=== PATIENT | male | born 1995 | race African-American/Black ===

== ENCOUNTER 2021-08-07 07:41 | Emergency (ER) | payer OTHER ==
[2021-08-07 09:01] VITALS: BP 107/69; PULSE 78; TEMP 98; BMI 21.4
== END 2021-08-07 10:03 | disposition home or self-care (01) ==
LOC: JER 07:41
DX: Z20.822 Contact with and (suspected) exposure to COVID-19 (principal)
CPT/HCPCS: 99283-25; C9803; U0003; U0005

== ENCOUNTER 2022-04-26 16:23 | Emergency (ER) | payer OTHER ==
[2022-04-26 16:28] VITALS: BP 118/64; PULSE 74; RESP 18; TEMP 97.8; BMI 20.5
[2022-04-26] MEDS ORDERED: DIPHTH,PERTUSS(ACELL),TET 0.5 ML DISP.SYRIN IM ONE ×2 (17:24→17:28)
== END 2022-04-26 18:46 | disposition home or self-care (01) ==
LOC: JERFT 16:23
PROC: 3E0234Z Introduction of Serum, Toxoid and Vaccine into Muscle, Percutaneous Approach (ICD-10-PCS; principal; 2022-04-26)
DX: S61.227A Laceration with foreign body of left little finger without damage to nail, initial encounter (principal); W26.8XXA Contact with other sharp object(s), not elsewhere classified, initial encounter
CPT/HCPCS: 90715; 99284-25

== ENCOUNTER 2023-08-16 23:49 | Emergency (ER) | payer OTHER ==
[2023-08-16 23:54] VITALS: BP 122/79; PULSE 83; RESP 20; TEMP 98.4; BMI 20.7
[2023-08-17] MEDS: ACETAMINOPHEN 500 MG TABLET (FP) PO ONE (00:10)
[2023-08-17] MEDS ORDERED: ACETAMINOPHEN 325 MG TABLET (FP) ONE (00:40)
[2023-08-17] MEDS ORDERED: KETOROLAC TROMETHAMINE 30 MG/1 ML VIAL ONE (03:15)
[2023-08-17] MEDS: KETOROLAC TROMETHAMINE 30 MG/1 ML VIAL IM ONE (03:23)
[2023-08-18] MEDS ORDERED: MAG HYDROX/AL HYDROX/SIMETH 30 ML UNIT-DOSE CUP ONE (21:24)
[2023-08-26] MEDS ORDERED: INSULIN (NOVOLOG) ASPART 100 UNITS/ML 10ML VIAL ONE (08:41)
[2023-09-08] MEDS ORDERED: INSULIN (NOVOLOG) ASPART 100 UNITS/ML 10ML VIAL ONE (08:09)
[2023-09-14] MEDS ORDERED: ONDANSETRON 4 MG/2 ML VIAL ONE (14:51)
== END 2023-08-17 03:25 | disposition home or self-care (01) ==
LOC: JER 23:49
PROC: 3E0233Z Introduction of Anti-inflammatory into Muscle, Percutaneous Approach (ICD-10-PCS; principal; 2023-08-17)
DX: M25.512 Pain in left shoulder (principal); S49.92XA Unspecified injury of left shoulder and upper arm, initial encounter; W22.01XA Walked into wall, initial encounter; Y93.02 Activity, running
CPT/HCPCS: 71045-TC-FY; 73000-TC-LT-FY; 73030-TC-LT-FY; 96372; 99284-25

== ENCOUNTER 2023-09-14 12:28 | Emergency (ER) | payer OTHER ==
[2023-09-14 12:32] VITALS: BP 101/76; PULSE 87; RESP 20; TEMP 98.7; BMI 20.7
[2023-09-14] MEDS ORDERED: ACETAMINOPHEN 500 MG TABLET (FP) PO ONE (13:22)
[2023-09-14] MEDS ORDERED: FAMOTIDINE 20 MG TABLET PO ONE (13:22)
[2023-09-14] MEDS ORDERED: ONDANSETRON *ODT* 4 MG TABLET SL ONE (13:22)
[2023-09-14] MEDS ORDERED: FAMOTIDINE 20 MG TABLET ONE (13:39)
[2023-09-14] MEDS ORDERED: ACETAMINOPHEN 325 MG TABLET (FP) ONE (13:39)
[2023-09-14] MEDS ORDERED: ONDANSETRON 8 MG TABLET (FP) PO ONE (13:40)
[2023-09-14 14:12] LABS: THROAT:GRP A STREP NOT DETECTED (NOTDETECTED)
[2023-09-14] MEDS ORDERED: LACTATED RINGERS SOLUTION 1000 ML INFUS.BAG IV ONE (14:48)
[2023-09-14] MEDS ORDERED: ONDANSETRON 4 MG/2 ML VIAL IVPB ONE (14:48)
[2023-09-14 15:21] LABS: HEMATOCRIT 44.4 % (35.4-49); HEMOGLOBIN 14.6 GM/dL (11.7-16.9); MCH 27.6 pg (25.7-33.7); MCHC 32.8 g/dl (32.0-35.9); MEAN CELL VOLUME 84.1 fl (80-96); MEAN PLT VOLUME 7.2 fl (7.5-11.1); PLATELET COUNT 212 10^3/uL (134-434); RBC 5.28 M/mm3 (4.00-5.60); RDW 14.8 % (11.9-15.9); WHITE BLOOD COUNT 8.4 K/mm3 (4.0-10.0)
[2023-09-14 15:39] LABS: POTASSIUM 4.5 mmol/L (3.5-5.1)
[2023-09-14 15:41] LABS: CALCIUM 9.5 mg/dL (8.5-10.1)
[2023-09-14 15:42] LABS: ALBUMIN 4.6 g/dl (3.4-5.0); MAGNESIUM 1.9 mg/dL (1.8-2.4)
[2023-09-14 15:45] LABS: CREATININE 0.9 mg/dL (0.55-1.3)
[2023-09-14 15:46] LABS: TOT PROT 7.5 g/dl (6.4-8.2)
[2023-09-14 15:47] LABS: BILIRUBIN,TOTAL 1.7 mg/dL (0.2-1)
[2023-09-14 15:53] LABS: ANISOCYTOSIS 0; HELMET CELLS 0; HOWELL-JOLLY BODIES 0; MACROCYTOSIS 0; OVALOCYTE 0; ROULEAU 0; SICKELED CELLS 0; TARGET CELLS 0; TEAR DROP CELLS 0; TOXIC GRANULATION 0
== END 2023-09-14 16:09 | disposition home or self-care (01) ==
LOC: JER 12:28
PROC: 3E033GC Introduction of Other Therapeutic Substance into Peripheral Vein, Percutaneous Approach (ICD-10-PCS; principal; 2023-09-14)
DX: R11.2 Nausea with vomiting, unspecified (principal); R53.81 Other malaise; R63.8 Other symptoms and signs concerning food and fluid intake; Z20.822 Contact with and (suspected) exposure to COVID-19
CPT/HCPCS: 0241U-QW; 36415; 80053; 83690; 83735; 85025; 87651; 96374; 99284-25; Q0162